=== PATIENT | male | born 1970 | race African-American/Black ===

== ENCOUNTER 2021-03-22 22:42 | Emergency (ER) | payer OTHER ==
[~2021-03-22] VITALS: Ht 182.9 cm; Wt 110.2 kg
--- NOTE | 2021-03-22 22:59 | NUR ---
[facility] TO ER BED 11. AAOX4. NOT IN RESP DISTRESS, BREATHING EVEN AND UNLABORED. AMBULATORY. BROUGHT IN FOR MID STERNAL CP NON RADIATING 08/01 SINCE WAKING UP @ 0800. PT ADMITS TO DOING CRYSTAL METH LAST NIGHT BECAUSE HE WAS HAVING FUN. EKG DONE. ON MONITOR. AT BEDSIDE FOR EVAL
[2021-03-22] MEDS ORDERED: ASPIRIN 81 MG TAB.CHEW PO ONE (23:00)
[2021-03-22] MEDS ORDERED: NITROGLYCERIN 0.4 MG/TAB BOTTLE SL ONE (23:00)
[2021-03-22] MEDS ORDERED: NITROGLYCERIN PACKET 1 GM PACKET TD ONE (23:00)
[2021-03-22] MEDS ORDERED: NITROGLYCERIN 0.4 MG/TAB BOTTLE ONE (23:15)
[2021-03-22] MEDS ORDERED: ASPIRIN 81 MG TAB.CHEW ONE (23:15)
[2021-03-22] MEDS ORDERED: NITROGLYCERIN PACKET 1 GM PACKET ONE (23:15)
--- NOTE | 2021-03-22 23:16 | NUR ---
XRAY AT BEDSIDE
--- NOTE | 2021-03-22 23:22 | NUR ---
GIVEN 0.4 SL NITROGLYCERIN FOR 6/10 MIDSTERNAL C/P. V/S ASSESSED PRIOR TO ADMIN AND WNL.
[2021-03-22 23:24] LABS: BASOPHILS # (AUTO) 0.1 K/uL (0.0-0.2); BASOPHILS % (AUTO) 0.8 % (0.0-2.0); EOSINOPHILS % (AUTO) 1.3 % (0.0-6.0); HEMATOCRIT 44 % (39-51); HEMOGLOBIN 14.7 g/dL (13.5-17.5); LYMPHOCYTES # (AUTO) 1.8 K/uL (0.8-4.8); LYMPHOCYTES % (AUTO) 19.1 % (20.0-44.0); MEAN CORPUSCULAR HGB CONC 34 g/dl (31.0-36.0); MEAN CORPUSCULAR VOLUME 84 fL (80-96); MONOCYTES % (AUTO) 10.7 % (2.0-12.0); NEUTROPHILS # (AUTO) 6.4 K/uL (1.8-8.9); NEUTROPHILS % (AUTO) 68.1 % (43.0-81.0); PLATELET COUNT (AUTO) 225 K/uL (150-450); RED BLOOD CELL COUNT(AUTO) 5.21 MIL/uL (4.5-6.0); WHITE BLOOD COUNT (AUTO) 9.4 K/uL (4.3-11.0)
[2021-03-22 23:53] LABS: CALCIUM, SERUM 9.1 mg/dL (8.5-10.1); CARBON DIOXIDE 28 mmol/L (21-32); CHLORIDE 100 mmol/L (98-107); CREATININE 1.2 mg/dL (0.6-1.3); GLUCOSE 111 mg/dL (74-106); POTASSIUM 3.6 mmol/L (3.5-5.1); SODIUM SERUM 136 mmol/L (136-145); UREA NITROGEN, BLOOD 15 mg/dL (7-18)
--- NOTE | 2021-03-22 23:58 | NUR ---
PT RESTING COMOFRTABLY REPORTS IMPROVEMENT IN C/P. ALL V/S STABLE.
[2021-03-23 00:05] LABS: ALANINE AMINOTRANSFERASE 31 U/L (12-78); ALBUMIN 3.9 g/dL (3.4-5.0); ALKALINE PHOSPHATASE 68 U/L (46-116); ASPARTATE AMINOTRANSFERASE 26 U/L (15-37); BILIRUBIN,DIRECT 0.2 mg/dL (0.0-0.2); BILIRUBIN,TOTAL 1.1 mg/dL (0.2-1.0); TOTAL PROTEIN, SERUM 7.8 g/dL (6.4-8.2)
[2021-03-23 02:38] LABS: BILIRUBIN,URINE NEGATIVE (NEGATIVE); COLOR,URINE YELLOW (YELLOW); LEUKOCYTE ESTERASE ,URINE NEGATIVE (NEGATIVE); NITRITE, URINE NEGATIVE (NEGATIVE); PROTEIN,URINE NEGATIVE (NEGATIVE); UGLUCOSE NEGATIVE (NEGATIVE); UROBILINOGEN,URINE 0.2 EU/dL (0.2)
--- NOTE | 2021-03-23 03:15 | NUR ---
PT DISCHARGED HOME IN STABLE CONDITION. WRITTEN AND VERBAL DISCHARGE INSTRUCTIONS PROVIDED AND PATIENT VERBALIZES UNDERSTADNING OF INSTRUCTIONS. IV LINE DISCONTINUED WITHOUT INCIDENT. PT AMBULATED OUT OF ER WITH STEADY GAIT.
[2021-03-23 03:37] VITALS: BP 132/76
== END 2021-03-23 03:15 | disposition home or self-care (01) ==
LOC: ER 22:48
DX: R07.9 Chest pain, unspecified (principal); I10 Essential (primary) hypertension; I51.7 Cardiomegaly; I50.9 Heart failure, unspecified; I42.9 Cardiomyopathy, unspecified; Z60.2 Problems related to living alone
CPT/HCPCS: 36415; 71045-TC; 80048-TC; 80076-TC; 83880; 84484-TC; 85025-TC